=== PATIENT | male | born 1935 | race African-American/Black ===

== ENCOUNTER 2017-03-21 14:05 | Emergency (ER) | payer BC ==
[2017-03-21 14:22] VITALS: BP 133/80; PULSE 62; TEMP 98.2; BMI 25.1
--- NOTE | 2017-03-21 19:44 | PDOC ---
History of Present Illness - General Chief Complaint: Pain, Acute Stated Complaint: Nausea/Vomiting - History of Present Illness Initial Comments: 03/21/17 19:42 Patient is an 82 y.o. male with a PMH of Prostate CA (s/p resection) and Colon CA (s/p hemicolectom) who presents c/o resolved RLQ pain. Patient states he noticed the "sharp" 10/10 pain this morning and endorses increased frequency. Patient states his pain disappeared following urinating here in the ED. Patient denies any fevers, chills, vomiting, but does note some gagging however he is tolerating PO intake. Surgical: Prostateomy, Jose-Colectomy NKDA Social: denies cigarettes, denies alcohol, denies recreational drugs PMD: Dr. Harshad Humphries Past History - Past Medical History Allergies/Adverse Reactions: Allergies Allergy/AdvReac Type Severity Reaction Status Date / Time No Known Allergies Allergy Verified 03/21/17 14:17 Home Medications: Ambulatory Orders NK [No Known Home Medication] 03/21/17 Cancer: Yes (colon/prostate) - Surgical History GI Surgery: Yes (colon resection, prostate) - Immunization History Immunization Up to Date: Yes - Suicide/Smoking/Psychosocial Hx Smoking History: Never smoked Review of Systems - Review of Systems Constitutional: No: Chills, Fever Respiratory: No: Shortness of Breath Cardiac (ROS): No: Chest Pain ABD/GI: Yes: Poor Fluid Intake, Abdominal cramping : Yes: Frequency, Urgency *Physical Exam - Vital Signs Last Vital Signs Temp Pulse Resp BP Pulse Ox 98.2 F 62 18 133/80 100 03/21/17 14:17 03/21/17 14:17 03/21/17 14:17 03/21/17 14:17 03/21/17 14:17 - Physical Exam General Appearance: Yes: Nourished, Appropriately Dressed Respiratory/Chest: positive: Lungs Clear Cardiovascular: positive: S1, S2, Diastolic Murmur Gastrointestinal/Abdominal: positive: Soft, Other ((-) Lindsay's Sign). negative : Rebound, Tenderness, Hernia, Mass Musculoskeletal: negative: CVA Tenderness (R), CVA Tenderness (L) Neurologic: positive: Fully Oriented, Alert ED Treatment Course - LABORATORY CBC & Chemistry Diagram: 03/21/17 19:30 03/21/17 19:30 - RADIOLOGY Radiology Studies Ordered: Category Date Time Status KIDNEY / RENAL US [US] Stat Ultrasound 03/21/17 19:41 Ordered Medical Decision Making - Medical Decision Making 03/21/17 19:49 Patient is a 82 y.o. male who presents with resolved RLQ abdominal pain, that resolved shortly after urinating. Initial DDx is for nephrolithiasis vs. UTI vs. diverticular disease (some h/o of diarrhea last week, however patient beyond traditional age range for dx) vs. gastritis PLAN: 1. CBC, CMP, Mg 2. UA/Urine Culture 3. Renal Ultrasound 03/21/17 21:34 Wet read of renal U/S shows no nephrolithiasis or hydronephrosis 03/21/17 22:01 U/S shows no nephrolithiasis, no obstructive urinary calculi, no hydronephrosis. UA nitrite (-), leukocyte esterase (-); no leukocytosis, normal electrolytes excepting Mg (1.7) - patient advised to increase PO fluid intake and consumption of leafy green vegetables. As patient's pain had resolved, patient ambulatory, tolerating PO intake and understood discharge instructions patient discharged home with urology referral. *DC/Admit/Observation/Transfer Diagnosis at time of Disposition: Abdominal pain, Nephrolithiasis - Discharge Dispostion Disposition: HOME Condition at time of disposition: Good - Referrals Referrals: Sukumar Garduno MD [Staff Physician] - Harshad Humphries MD [Primary Care Provider] - - Patient Instructions Printed Discharge Instructions: Kidney Stones -- Adult Additional Instructions: You were evaluated today for a kidney stone which you likely passed. Please follow up with your primary care doctor in the next week as well as urology ( referral information included in your discharge paperwork) should your pain return. Please return to the Emergency Department for any worsening or concerning symptoms.
--- NOTE | 2017-03-21 19:54 | PDOC ---
Attending Attestation - HPI HPI: 03/21/17 20:06 The patient is a 82 year old male with a significant PMH of prostate CA (s/p resection) & colon cancer (s/p hemicolectomy) who presents to the emergency department with resolved abdominal pain that began approximately this morning. The patient describes the abdominal pain as located in the RLQ, which resolved upon urinating in the ED. The patient also reports a gagging sensation throughout the day. He is tolerating PO, but notes having a reduced appetite. He denies fevers, chills, nausea, vomiting, diarrhea, or constipation. Denies urinary changes. <Jose Lanza - Last Filed: 03/21/17 20:06> - Resident Resident Name: Brielle Hensley - ED Attending Attestation I have performed the following: I have examined & evaluated the patient, The case was reviewed & discussed with the resident, I agree w/resident's findings & plan, Exceptions are as noted - Physicial Exam PE: 03/21/17 19:56 Physical Exam General Appearance: Yes: Appropriately Dressed. No: Apparent Distress, Intoxicated HEENT: positive: EOMI, RENETTA, Normal ENT Inspection, Normal Voice, TMs Normal, Pharynx Normal. negative: Pale Conjunctivae, Photophobia, Scleral Icterus (R), Scleral Icterus (L) Neck: positive: Trachea midline, Normal Thyroid, Supple. negative: Tender, Rigid, Carotid bruit, Stridor, Lymphadenopathy (R), Lymphadenopathy (L), Thyromegaly Respiratory/Chest: positive: Lungs Clear, Normal Breath Sounds. negative: Chest Tender, Respiratory Distress, Accessory Muscle Use, Labored Respiration, RES, Crackles, Rales, Rhonchi, Stridor, Wheezing, Dullness Cardiovascular: positive: Regular Rhythm, Regular Rate, S1, S2. negative: Edema , JVD, Murmur, Bradycardia, Tachycardia Vascular Pulses: Dorsalis-Pedis (R): 2+, Doralis-Pedis (L): 2+ Gastrointestinal/Abdominal: positive: Normal Bowel Sounds, Flat, Soft. negative : Tender, Organomegaly, Pulsatile Mass, Increased Bowel Sounds, Decreased BS, Distended, Guarding, Rebound, Hernia, Hepatomegaly, Spleenomegaly Lymphatic: negative: Adenopathy, Tenderness Musculoskeletal: positive: Normal Inspection. negative: CVA Tenderness, Decreased Range of Motion Extremity: positive: Normal Capillary Refill, Normal Inspection, Normal Range of Motion, Pelvis Stable. negative: Tender, Pedal Edema, Swelling, Erythema Integumentary: positive: Normal Color, Dry, Warm. negative: Cyanotic, Erythema , Jaundice, Rash Neurologic: positive: civil engineering director II-XII NML intact, Fully Oriented, Alert, Normal Mood/ Affect, Motor Strength 5/5. negative: EOM Palsy, Facial Droop, Sensory Deficit <Bryan Isidro - Last Filed: 03/21/17 21:53> Discharge Disposition - Discharge Dispostion Admit: No <Bryan Isidro - Last Filed: 03/21/17 21:53> - Diagnosis Abdominal pain - Discharge Dispostion Disposition: HOME Condition at time of disposition: Stable - Referrals Referrals: Harshad Humphries MD [Primary Care Provider] - Sukumar Garduno MD [Staff Physician] - - Patient Instructions Printed Discharge Instructions: DI for Abdominal Pain-Adult - Post Discharge Activity
[2017-03-21 20:08] LABS: BASOPHIL 0.4 % (0-2.0); MCH 31.3 pg (25.7-33.7); MCHC 33.6 g/dl (32.0-35.9); MEAN CELL VOLUME 93.4 fl (80-96); MEAN PLT VOLUME 7.6 fl (7.5-11.1); NEUTROPHILS 88.6 % (42.8-82.8); PLATELET COUNT 175 K/MM3 (134-434); RDW 12.8 % (11.9-15.9); WHITE BLOOD COUNT 8.9 K/mm3 (4.0-10.0)
[2017-03-21 20:12] LABS: URINE APPEARANCE CLEAR; URINE BILIRUBIN NEGATIVE (NEGATIVE); URINE BLOOD 1+ (NEGATIVE); URINE COLOR LTYELLOW; URINE GLUCOSE (UA) NEGATIVE (NEGATIVE); URINE KETONE 1+ (NEGATIVE); URINE NITRITE NEGATIVE (NEGATIVE); URINE PROTEIN NEGATIVE (NEGATIVE); URINE UROBILINOGEN NEGATIVE mg/dL (0.2-1.0)
[2017-03-21 20:17] LABS: URINE BACTERIA RARE /hpf (NONE SEEN); URINE MUCUS RARE; URINE RBC 5 /hpf (0-3); URINE WBC 4 /hpf (3-5)
[2017-03-21 20:30] LABS: ALBUMIN 3.9 g/dl (3.4-5.0); ANION GAP 6 (8-16); BILIRUBIN,TOTAL 0.6 mg/dL (0.2-1.0); CO2 30 mmol/L (21-32); CREATININE 1.2 mg/dL (0.7-1.3); GLUCOSE,RANDOM 142 mg/dL (74-106); SGOT/AST 19 U/L (15-37); SGPT/ALT 18 U/L (12-78); TOT PROT 7.6 g/dl (6.4-8.2)
[2017-03-21 20:31] LABS: ALK PHOS 33 U/L (45-117)
[2017-03-21 21:11] LABS: URINE LEUK ESTERASE Negative (NEGATIVE)
== END 2017-03-21 22:03 | disposition home or self-care (01) ==
LOC: JER 14:05
DX: R10.31 Right lower quadrant pain (principal); N20.0 Calculus of kidney; Z85.46 Personal history of malignant neoplasm of prostate; Z85.038 Personal history of other malignant neoplasm of large intestine
CPT/HCPCS: 36415; 76775-TC; 80053; 81003; 81015; 83735; 85025; 87086; 99283-25